=== PATIENT | female | born 1985 | race Caucasian/White ===

== ENCOUNTER 2023-04-19 20:15 | Emergency (ER) | payer MEDICAID ==
[~2023-04-19] VITALS: Ht 167.6 cm; Wt 73.9 kg
[2023-04-19 20:30] VITALS: BP_SYST 137; PULSE 101; RESP 18; TEMP 96.4; O2SAT 98
[2023-04-19 21:45] LABS: BILIRUBIN,URINE NEGATIVE (NEGATIVE); BLOOD, URINE 3+ (NEGATIVE); CLARITY/URINE CLEAR (CLEAR); COLOR,URINE YELLOW (YELLOW); GLUCOSE,URINE 3+ (NEGATIVE); KETONES,URINE TRACE (NEGATIVE); LEUKOCYTE ESTERASE ,URINE NEGATIVE (NEGATIVE); NITRITE, URINE NEGATIVE (NEGATIVE); PROTEIN URINE 1+ (NEGATIVE)
[2023-04-19 21:50] LABS: BACTERIA,URINE FEW /HPF (None Seen); MUCUS,URINE None Seen /LPF (None Seen); RBC,URINE 20-50 /HPF (0-3); WBC,URINE 0-3 /HPF (0-3)
[2023-04-19 21:52] LABS: BASOPHILS # (AUTO) 0.1 K/uL (0.0-0.2); BASOPHILS % (AUTO) 0.9 % (0.0-2.0); EOSINOPHILS # (AUTO) 0.1 K/uL (0.0-0.4); EOSINOPHILS % (AUTO) 1.1 % (0.0-4.0); HEMATOCRIT 41.1 % (36-48); HEMOGLOBIN 13.3 g/dL (12.0-16.0); LYMPHOCYTES # (AUTO) 3.2 K/uL (1.0-5.5); LYMPHOCYTES % (AUTO) 30.1 % (20.5-51.5); MEAN CORPUSCULAR HEMOGLOBIN 24 pg (27-31); MEAN CORPUSCULAR HGB CONC 32 % (32-36); MEAN CORPUSCULAR VOLUME 75 fL (79.0-98.0); MONOCYTES # (AUTO) 0.7 K/uL (0.0-1.0); MONOCYTES % (AUTO) 6.7 % (1.7-9.3); NEUTROPHILS # (AUTO) 6.4 K/uL (1.8-7.7); NEUTROPHILS % (AUTO) 61.2 % (40.0-70.0); PLATELET COUNT (AUTO) 256 K/uL (130-430); RED BLOOD CELL COUNT(AUTO) 5.47 MIL/uL (4.2-6.2); RED CELL DISTRIBUTION WIDTH 16.1 % (9.0-15.0); WHITE BLOOD COUNT (AUTO) 10.5 K/uL (4.8-10.8)
[2023-04-19 22:00] LABS: CALCIUM 8.5 mg/dL (8.4-11.0); CREATININE 0.69 mg/dL (0.55-1.30)
[2023-04-19 22:07] LABS: ALBUMIN 3.5 g/dL (3.4-4.8); TOTAL BILIRUBIN 0.2 mg/dL (0.0-1.0)
--- NOTE | 2023-04-19 23:40 | NUR ---
PT BIB FAMILY FROM HOME C/O OF LT LOWER ABD PAIN THAT RADIATES TO LEFT FLANK 05/30. PT STATES PAIN FOR 2 MONTHS. PT HX OF DM AND HTN AND TAKES METFORMIN TO CONTROL DIABETES. PT RESTING IN BED WITH FAMILY BEDSIDE VSS
--- NOTE | 2023-04-19 23:41 | NUR ---
URINE AND BLOOD WORK DONE BEFORE ENTERING MAIN ED
[2023-04-20] MEDS ORDERED: cefTRIAXone 1 GM IVPB PREMIX 50 ML IV ONE ×2 (00:45)
[2023-04-20] MEDS ORDERED: ONDANSETRON HCL 4 MG/2 ML VIAL IVP ONE (01:45)
[2023-04-20] MEDS ORDERED: MORPHINE 4 MG INJ. 4 MG/ML VIAL IVP ONE (01:45)
--- NOTE | 2023-04-20 01:50 | NUR ---
PAIN AND NAUSEA MEDICINE PULLED FROM PIXIS, WHEN ASSESSED PT, PT APPEARS SLEEPING EYES CLOSED VSS, NAD, AND DENIES THE NEED FOR MEDICATIONS. WILL CONTINUE TO MONITOR AND REASSESS FOR PAIN AND NAUSEA. FAMILY AT BEDSIDE
[2023-04-20] MEDS ORDERED: CIPR500T5 PO (03:38)
[2023-04-20 03:53] VITALS: BP_SYST 142; PULSE 83; RESP 16; TEMP 98.3; O2SAT 95
--- NOTE | 2023-04-20 03:56 | NUR ---
Patient given written and verbal discharge instructions and verbalizes understanding. ER MD discussed with patient the results and treatment provided. Patient in stable condition. ID arm band removed. IV catheter removed intact and dressing applied, no active bleeding. Rx of CIPROFLOXACIN HCL given. Patient educated on URINARY TRACT INFECTION and to follow up with PMD. Pain Scale . Opportunity for questions provided and answered. Medication side effect fact sheet provided.
== END 2023-04-20 03:53 | disposition home or self-care (01) ==
LOC: SED 20:15
DX: N39.0 Urinary tract infection, site not specified (principal); R10.32 Left lower quadrant pain; R11.2 Nausea with vomiting, unspecified; E11.9 Type 2 diabetes mellitus without complications; Z79.899 Other long term (current) drug therapy
CPT/HCPCS: 99285; 71045; 80053; 81000; 82962; 85025; 87040; 36415; 83605; 74176; 96365; 76376; J0696; J2405; J2270